=== PATIENT | male | born 1960 | race Caucasian/White ===

== ENCOUNTER → 2018-10-09 | Outpatient (CLI) | payer BC ==
[~2018-10-09] MED LIST: AMLO-125 PO; AMOX-559 PO; ASPI-715 PO; AZIT500T47 PO; FLUT16SP19 NS; GUAI120L3 PO; IRBE1TAB24 PO; LOR5 PO; LOSA100T75 PO; METO-259 PO; METO50TA19 PO; PREG50CA48 PO; PRO25 PO; ROSU20TA23 PO; VALS1TAB75 PO
[2018-10-09 12:03] LABS: PLATELET COUNT, AUTOMATED 218 K/uL (150-450)
[2018-10-09 12:15] LABS: LDL CHOLESTEROL 113 mg/dl
--- NOTE | 2018-10-09 12:26 | RADIOLOGY IMAGING REPORT ---
FACILITY: [facility] PATIENT NAME: Conrado Kenney : 1960 MR: [id number] V: [id number] EXAM DATE: ORDERING PHYSICIAN: SUNNI JORDAN TECHNOLOGIST: Location: [facility] Patient: Conrado Kenney : 1960 Visit/Account:[id number] Date of Sevice: 10/09/2018 Exam type: L-SPINE 2 OR 3 VIEW History: tingling in the back Comparison: Thoracic spine performed today. Findings: There are five nonrib-bearing lumbar-type vertebral bodies present. There is no evidence of acute fr actures or subluxations. There are tiny anterior osteophytes at L2-3 and L3-4 IMPRESSION: 1. Very mild spondylotic changes lumbar spine as described Report Dictated By: Claudia Segura MD at 10/09/2018 12:20 PM Report E-Signed By: Claudia Segura MD at 10/09/2018 12:21 PM WSN:[email or web address]
--- NOTE | 2018-10-09 12:27 | RADIOLOGY IMAGING REPORT ---
FACILITY: [facility] PATIENT NAME: Conrado Kenney : 1960 MR: [id number] V: [id number] EXAM DATE: ORDERING PHYSICIAN: SUNNI JORDAN TECHNOLOGIST: Location: [facility] Patient: Conrado Kenney : 1960 Visit/Account:[id number] Date of Sevice: 10/09/2018 Exam type: XR THORACIC SPINE AP & LAT History: tingling in the back, left-sided pain Comparison: Lumbar spine performed today. Findings: There is no evidence of acute fractures or subluxations in the thoracic spine. There is a minimal S- shaped scoliosis. No significant spondylotic changes are identified IMPRESSION: 1. Minimal S-shaped scoliosis of the thoracic spine Report Dictated By: Claudia Segura MD at 10/09/2018 12:21 PM Report E-Signed By: Claudia Segura MD at 10/09/2018 12:23 PM WSN:[email or web address]
== END ==
LOC: LAB 11:18
PROVIDERS: ATTEND Internal Medicine
DX: M47.896 Other spondylosis, lumbar region (principal); M41.84 Other forms of scoliosis, thoracic region; R73.9 Hyperglycemia, unspecified; R97.20 Elevated prostate specific antigen [PSA]; E78.5 Hyperlipidemia, unspecified; I10 Essential (primary) hypertension; R20.2 Paresthesia of skin
CPT/HCPCS: 36415; 72070; 72100; 81001; 82040; 82247; 82310; 82374; 82435; 82465; 82565; 82607; 82746; 82947; 83036; 83718; 84075; 84132; 84153; 84155; 84295; 84443; 84450; 84460; 84478; 84520; 84550; 85025